=== PATIENT | male | born 1945 | race Two or more races ===

== ENCOUNTER 2017-03-20 09:11 | Outpatient (CLI) | payer MEDICARE, BC ==
[~2017-03-20 09:11] MED LIST: ASPIRIN EC81 MG ORAL; DEXILANT60 MG ORAL; EFFIENT10 MG PO; MYRBETRIQ25 MG PO; NITROSTAT0.4 M1 SL; PROSCAR5 MG ORAL; TAMSULOSIN HCL0.4 MG ORAL; TRIAMTERENE-HC1 EAC7 ORAL; VITAMIN B122500 MCG PO
--- NOTE | 2017-03-20 17:42 | GI Progress Note ---
Assessment/Plan Problems: (1) Colonoscopy planned SNOMED: 807790897 (2) GERD (gastroesophageal reflux disease) ICD Codes: K21.9 - Gastro-esophageal reflux disease without esophagitis SNOMED: 811340783 Status: stable Status Narrative Seen with Dr. Chacko. Assessment/Plan EGD/colonoscopy scheduled 03/28/17. - CLD + [employer] instructions given and acknowledged. Subjective Gastrointestinal/Abdominal: Reports: no symptoms Objective T 97.9 BP 126/83 P 60 98 RA General Appearance: no apparent distress, alert Cardiovascular: normal rate Respiratory/Chest: normal breath sounds, no respiratory distress Abdominal Exam: normal bowel sounds, non tender, soft Extremities: normal range of motion Raquel Norton N.P. Mar 20, 2017 17:42
== END 2017-03-20 09:45 | disposition home or self-care (01) ==
LOC: PAN 09:11
DX: K21.9 Gastro-esophageal reflux disease without esophagitis (principal)
CPT/HCPCS: 99211

== ENCOUNTER 2017-03-28 07:06 | Day surgery (SDC) | payer MEDICARE, BC ==
[~2017-03-28] VITALS: Ht 157.5 cm; Wt 83.0 kg
[2017-03-28] VITALS (9 sets, daily range): BP systolic 105–136; BP diastolic 71–90
[2017-03-28] MEDS ORDERED: ATORVASTATIN CA20 MG ORAL (07:53)
--- NOTE | 2017-03-28 08:25 | Pre-Procedure Note/Attestation ---
Pre-Procedure Note/Attestation Complete Prior to Procedure Planned Procedure: not applicable Procedure Narrative: egd/colonoscopy Indications for Procedure Pre-Operative Diagnosis: screening colon, gerd Attestation I attest that I discussed the nature of the procedure; its benefits; risks and complications; and alternatives (and the risks and benefits of such alternatives ), prior to the procedure, with the patient (or the patient's legal product representative). I attest that, if there was a reasonable possibility of needing a blood transfusion, the patient (or the patient's legal product representative) was given the [facility] standardized written summary, pursuant to the Luke Roder[place] Blood Safety Act ([place] Health and Safety Code # 1645, as amended). I attest that I re-evaluated the patient just prior to the surgery and that there has been no change in the patient's H&P, except as documented below: MARIA TERESA KING Mar 28, 2017 08:25
[2017-03-28] MEDS ORDERED: LR 1000ml ONE (09:00)
[2017-03-28] MEDS ORDERED: Lidocaine 1% Plain 30 ml INJ ONE (09:00)
[2017-03-28] MEDS ORDERED: Ketamine 500mg Inj ONE (09:00)
[2017-03-28] MEDS ORDERED: Midazolam 2mg/2ml Inj ONE (09:00)
[2017-03-28] MEDS ORDERED: Lidocaine 1% MPF 10mg/ml 5ml ONE (09:00)
[2017-03-28] MEDS ORDERED: Propofol 10mg/ml 20ml IV ONE (09:00)
[2017-03-28] MEDS ORDERED: LR 1000ml 1,000 ML IVLG SCH (09:25)
--- NOTE | 2017-03-28 09:29 | Anethesia Preoperative Eval ---
Anesthesia Pre-op PMH/ROS General Date of Evaluation: Mar 28, 2017 Time of Evaluation: 08:56 Anesthesiologist: Danelle ASA Score: ASA 3 Mallampati Score Class I : Soft palate, uvula, fauces, pillars visible Class II: Soft palate, uvula, fauces visible Class III: Soft palate, base of uvula visible Class IV: Only hard plate visible Mallampati Classification: Class II Surgeon: Ginna Diagnosis: GERD Surgical Procedure: EGD/Colonoscopy Anesthesia History: none Family History: no anesthesia problems Allergies: Coded Allergies: No Known Allergies (Verified Allergy, Unknown, 05/10/09) Medications: see eMAR Past Medical History Cardiovascular: Reports: CAD - Stent, HTN, other Gastrointestinal/Genitourinary: Reports: GERD HEENT: Reports: cataract (L), cataract (R) Other: obesity - BMI 33 PSxH Narrative: Stent Anesthesia Pre-op Phys. Exam Physician Exam Last Vital Signs Date Time Temp Pulse Resp B/P Pulse Ox O2 Delivery O2 Flow Rate FiO2 03/28/17 07:38 97.0 57 18 133/88 96 Room Air Constitutional: NAD Neurologic: CN 2-12 intact Cardiovascular: RRR Respiratory: CTA Gastrointestinal: S/NT/ND Airway Exam Mallampati Score: Class II MO: full ROM: full Teeth: intact Anesthesia Pre-op A/P Risk Assessment & Plan Assessment: ASA 3 Plan: GA Status Change Before Surgery: Chris Bryant MD Mar 28, 2017 09:29
[2017-03-28] MEDS ORDERED: Ketorolac 60mg Inj IV PRN (09:30)
[2017-03-28] MEDS ORDERED: Midazolam 2mg/2ml Inj IVP PRN (09:30)
[2017-03-28] MEDS ORDERED: Atropine Inj 1mg/10ml Syr IV PRN (09:30)
[2017-03-28] MEDS ORDERED: Metoclopramide 10mg/2ml Inj IVP PRN (09:30)
[2017-03-28] MEDS ORDERED: Meperidine 25mg/0.5ml Inj (FOR RIGORS ONLY) IV PRN (09:30)
[2017-03-28] MEDS ORDERED: Hydromorphone 0.5mg/0.5ml inj IVP PRN (09:30)
[2017-03-28] MEDS ORDERED: Norco 5mg/325mg tab ORAL PRN (09:30)
[2017-03-28] MEDS ORDERED: fentaNYL 100 mcg/2 mL IV PRN (09:30)
[2017-03-28] MEDS ORDERED: Norco 7.5mg/325mg tab ORAL PRN (09:30)
[2017-03-28] MEDS ORDERED: LORazepam Inj 2mg/ml 1ml IV PRN (09:30)
[2017-03-28] MEDS ORDERED: DiphenhydrAMINE 50mg/ml Inj IVP PRN (09:30)
[2017-03-28] MEDS ORDERED: Oxycodone/Acetaminophen 5-325 ORAL PRN (09:30)
[2017-03-28] MEDS ORDERED: Ketorolac 30mg Inj IV PRN (09:30)
--- NOTE | 2017-03-28 09:30 | Immediate Post-Op Evaluation ---
Immediate Post-Op Evalulation Immediate Post-Op Evalulation Procedure: EGD/Colonoscopy Date of Evaluation: Mar 28, 2017 Time of Evaluation: 09:54 IV Fluids: 500 LR Blood Products: 0 Estimated Blood Loss: 2 Urinary Output: 0 Blood Pressure Systolic: 111 Blood Pressure Diastolic: 76 Pulse Rate: 54 Respiratory Rate: 16 O2 Sat by Pulse Oximetry: 100 Temperature (Fahrenheit): 97.6 Pain Score (1-10): 1 Nausea: No Vomiting: No Complications 0 Patient Status: awake, reacts, patent, none Hydration Status: adequate Chris Mcclendon MD Mar 28, 2017 09:30
--- NOTE | 2017-03-28 09:30 | 48 Hour Post Anesthesia Eval ---
Post Anesthesia Evaluation Procedure: EGD/Colonoscopy Date of Evaluation: Mar 28, 2017 Time of Evaluation: 12:06 Blood Pressure Systolic: 147 0: 74 Pulse Rate: 51 Respiratory Rate: 18 Temperature (Fahrenheit): 98.2 O2 Sat by Pulse Oximetry: 98 Airway: patent Nausea: No Vomiting: No Pain Intensity: 1 Hydration Status: adequate Cardiopulmonary Status: Stable Mental Status/LOC: patient returned to baseline Follow-up Care/Observations: 0 Post-Anesthesia Complications: 0 Follow-up care needed: ready to discharge Chris Mcclendon MD Mar 28, 2017 09:30
--- NOTE | 2017-03-28 09:32 | Endoscopy Procedure Note ---
Endoscopy Procedure Note Indication for Procedure: screening colon, GERD Procedures Performed: EGD, colonoscopy Operative Findings/Diagnosis: gastric sub mucodal lesion, gastritis Specimen: yes Pt Tolerated Procedure Well: Yes Estimated Blood Loss: none Anesthesiologist: sarika Anesthesia: MAC Implant(s) used?: No 50 yrs or older w/o bx or poly: Yes 10yrs. F/U not recommended: Yes If not recommended, why?: Above average risk 10 yrs. F/U needed: Yes 18 years or older w/prev. colo: No MARIA TERESA KING Mar 28, 2017 09:31
--- NOTE | 2017-03-28 11:31 | Procedure Note ---
DATE OF PROCEDURE: 03/28/2017 SURGEON: Larry Chacko M.D. PROCEDURE: Colonoscopy with biopsy and colonoscopy. ANESTHESIOLOGIST: Domenic Mcclendon M.D. INSTRUMENT: Olympus adult flexible upper endoscope and colonoscope. INDICATION: Screening colonoscopy evaluation, chronic GERD. REASON FOR PROCEDURE: The procedure, risks, benefits, and possible consequences, including hemorrhage, aspiration, perforation and infection, and alternative treatments, were explained to the patient/legal guardian by Dr. Larry Chacko and the patient/legal guardian understood and accepted these risks. PROCEDURE: After informed consent was obtained and the patient was adequately sedated, Olympus upper endoscope was advanced from mouth into the second portion of the duodenum and retroflexion performed in the stomach. The patient had a gastric submucosal lesion in the antrum in the pre-pyloric region. Posterior wall with a central cavity looking lesion roughly measured about 7 mm suspicious for pancreatic rest, status post biopsy. The patient had diffuse gastritis. Random biopsy from antrum of the stomach was obtained to rule out H. pylori infection. At this time, the upper endoscope was retrieved and the patient was turned over colonoscopy. First, a rectal exam was performed, which was normal. Then, the scope was advanced from the rectum into the cecum documented by appendiceal orifice, ileocecal valve, and right upper quadrant palpation. Quality of prep overall was good except for some solid stool covering some part of the colon especially cecum and also throughout the colon may be about 5% of the colonic mucosa was not thoroughly examined given this prep. There was no obvious mass, polyp, diverticulosis or any pathology seen. Retroflexion of rectum showed evidence of internal hemorrhoids. FINDINGS: 1. Gastric submucosal lesion suspicious for pancreatic rest, status post biopsy. 2. Gastritis, status post biopsy. 3. Colonic prep. 4. Internal hemorrhoids. RECOMMENDATIONS: Follow up biopsies and treat accordingly. Larry Chacko M.D. DR: Aggie JOB#: [id number] CC:
--- NOTE | 2017-03-28 16:40 | Cardiology Report ---
APPROVED REPORT EKG Measurement Heart [id number] OR 172P47 [id number] Sinus rhythm with occasional premature ventricular complexes Possible Lateral infarct, age undetermined Abnormal ECG
== END 2017-03-28 11:25 | disposition home or self-care (01) ==
LOC: GAS 07:06
DX: Z12.11 Encounter for screening for malignant neoplasm of colon (principal); K64.8 Other hemorrhoids; K21.9 Gastro-esophageal reflux disease without esophagitis; K29.50 Unspecified chronic gastritis without bleeding; K31.9 Disease of stomach and duodenum, unspecified; I10 Essential (primary) hypertension; I25.10 Atherosclerotic heart disease of native coronary artery without angina pectoris; E78.5 Hyperlipidemia, unspecified; E66.9 Obesity, unspecified; Z68.33 Body mass index [BMI] 33.0-33.9, adult
CPT/HCPCS: 43239; 93005; G0121; J2001; J2250; J2704; J3490; J7120; 94003; 94150

== ENCOUNTER 2017-04-10 09:34 | Outpatient (CLI) | payer MEDICARE, BC ==
[~2017-04-10 09:34] MED LIST changes: +ATORVASTATIN CA20 MG ORAL
[2017-04-10 09:48] VITALS: BP 118/76
--- NOTE | 2017-04-10 10:09 | GI Progress Note ---
Assessment/Plan Problems: (1) Submucosal lesion of stomach ICD Codes: K31.89 - Other diseases of stomach and duodenum SNOMED: 175288717 (2) Colonoscopy planned SNOMED: 987317190 (3) GERD (gastroesophageal reflux disease) ICD Codes: K21.9 - Gastro-esophageal reflux disease without esophagitis SNOMED: 538376725 (4) CAD (coronary artery disease) ICD Codes: I25.10 - Atherosclerotic heart disease of [place] coronary artery without angina pectoris SNOMED: 99487776 (5) Status post coronary angiogram ICD Codes: Z98.89 - Other specified postprocedural states SNOMED: 98198336, 419355737 Status: stable Status Narrative Seen with Dr. Chacko. Assessment/Plan EGD/ Colonoscopy reviewed with patient. DATE OF PROCEDURE: 03/28/2017 PROCEDURE: Colonoscopy with biopsy and colonoscopy. INDICATION: Screening colonoscopy evaluation, chronic GERD. FINDINGS: 1. Gastric submucosal lesion suspicious for pancreatic rest, status post biopsy. 2. Gastritis, status post biopsy. >> NEGATIVE for H. Pylori 3. Colonic prep. 4. Internal hemorrhoids. RECOMMENDATIONS: EUS scheduled for 04/18/17 to evaluate gastric submucosal lesion. - NPO @ [place] day prior to procedure explained to patient. Subjective Subjective GERD >> dexilant 60 mg Objective Last 24 Hour Vital Signs Date Time Temp Pulse Resp B/P Pulse Ox O2 Delivery O2 Flow Rate FiO2 04/10/17 09:48 97.6 61 16 118/76 General Appearance: no apparent distress, alert Cardiovascular: normal rate Respiratory/Chest: normal breath sounds, no respiratory distress Abdominal Exam: normal bowel sounds, non tender, soft Extremities: normal range of motion Raquel Norton N.P. Apr 10, 2017 10:09
== END 2017-04-10 10:00 | disposition home or self-care (01) ==
LOC: PAN 09:34
DX: K21.9 Gastro-esophageal reflux disease without esophagitis (principal); K31.89 Other diseases of stomach and duodenum; I25.10 Atherosclerotic heart disease of native coronary artery without angina pectoris; Z98.890 Other specified postprocedural states
CPT/HCPCS: 99211

== ENCOUNTER 2017-05-16 07:43 | Day surgery (SDC) | payer MEDICARE, BC ==
[2017-05-16] VITALS (7 sets, daily range): BP systolic 98–147; BP diastolic 62–87
[~2017-05-16] VITALS: Ht 154.9 cm; Wt 85.3 kg
--- NOTE | 2017-05-16 05:59 | Anethesia Preoperative Eval ---
Anesthesia Pre-op PMH/ROS General Date of Evaluation: May 16, 2017 Time of Evaluation: 05:56 Anesthesiologist: mele ASA Score: ASA 3 Mallampati Score Class I : Soft palate, uvula, fauces, pillars visible Class II: Soft palate, uvula, fauces visible Class III: Soft palate, base of uvula visible Class IV: Only hard plate visible Mallampati Classification: Class II Surgeon: judd Diagnosis: abdominal pain Surgical Procedure: eus Anesthesia History: none Social History: smoking - nonsmoker Family History: no anesthesia problems Allergies: Coded Allergies: No Known Allergies (Verified Allergy, Unknown, 05/10/09) Medications: see eMAR Past Medical History Cardiovascular: Reports: HTN, CAD, other - cardiac stent, cardiac catheterization, Gastrointestinal/Genitourinary: Reports: other - gastritis Hematology/Immune: Reports: other - anticoagulation therapy Musculoskeletal/Integumentary: Reports: OA Anesthesia Pre-op Phys. Exam Physician Exam Last Vital Signs Date Time Temp Pulse Resp B/P (MAP) Pulse Ox O2 Delivery O2 Flow Rate FiO2 05/16/17 08:38 98.1 53 20 143/80 98 Room Air Constitutional: NAD Neurologic: CN 2-12 intact Cardiovascular: RRR Respiratory: CTA Gastrointestinal: S/NT/ND Airway Exam Mallampati Score: Class II MO: full Neck: supple TMD: 2fb ROM: full Teeth: intact Anesthesia Pre-op A/P Studies Pre-op Studies: EKG - sinus bradycardia Risk Assessment & Plan Assessment: asa3 Plan: mac Status Change Before Surgery: No Pre-Antibiotics Drug: SELWYN Duff May 16, 2017 05:59
--- NOTE | 2017-05-16 08:49 | Short Stay Surgery H&P ---
History of Present Illness History of Present Illness Chief Complaint gastric sub mucosal lesion HPI Rina Gamboa is a 71 year old male who was admitted on for Abdominal Pain Patient History Allergies: Coded Allergies: No Known Allergies (Verified Allergy, Unknown, 05/10/09) PAST MEDICAL HISTORY: (1) CAD (coronary artery disease) (2) Submucosal lesion of stomach (3) GERD (gastroesophageal reflux disease) (4) Status post coronary angiogram Past Surgeries: Social History: Medication History Scheduled Aspirin Ec* (Aspirin Ec*), 81 MG ORAL DAILY, (Reported) Atorvastatin Calcium* (Atorvastatin Calcium*), 20 MG ORAL BEDTIME, (Reported) Dexlansoprazole (Dexilant), 60 MG ORAL DAILY, (Reported) Mirabegron (Myrbetriq), 25 MG PO DAILY, (Reported) Prasugrel Hcl (Effient), 10 MG PO DAILY, (Reported) Tamsulosin Hcl (Tamsulosin Hcl*), 0.4 MG ORAL BEDTIME, (Reported) Triamterene/Hydrochlorothiazid (Triamterene-Hctz 37.5-25 Mg Cp), 1 CAP ORAL DAILY, (Reported) Review of Systems Cardiovascular: Reports: no symptoms Respiratory: Reports: no symptoms Skeletal: Reports: no symptoms Gastrointestinal: Reports: no symptoms Genitourinary: Reports: no symptoms Neurologic: Reports: no symptoms Endocrine: Reports: no symptoms Physical Exam Vital Signs Last Vital Signs Date Time Temp Pulse Resp B/P (MAP) Pulse Ox O2 Delivery O2 Flow Rate FiO2 05/16/17 08:38 98.1 53 20 143/80 98 Room Air Skin: normal HENT: normal Heart: normal Lungs: normal Abdomen: normal Extremities: normal Plan Attestation Are the patient's medical conditions optimized for surgery? Attestation Response: yes MARIA TERESA KING May 16, 2017 08:49
--- NOTE | 2017-05-16 08:49 | Pre-Procedure Note/Attestation ---
Pre-Procedure Note/Attestation Complete Prior to Procedure Planned Procedure: not applicable Procedure Narrative: eus Indications for Procedure Pre-Operative Diagnosis: gastric submucosal lesion Attestation I attest that I discussed the nature of the procedure; its benefits; risks and complications; and alternatives (and the risks and benefits of such alternatives ), prior to the procedure, with the patient (or the patient's legal medical collections representative). I attest that, if there was a reasonable possibility of needing a blood transfusion, the patient (or the patient's legal medical collections representative) was given the [facility] standardized written summary, pursuant to the [place]oder[place] Blood Safety Act ([place] Health and Safety Code # 1645, as amended). I attest that I re-evaluated the patient just prior to the surgery and that there has been no change in the patient's H&P, except as documented below: MARIA TERESA KING May 16, 2017 08:48
[2017-05-16] MEDS ORDERED: Propofol 10mg/ml 20ml IV ONE (09:30)
[2017-05-16] MEDS ORDERED: Lidocaine 1% MPF 10mg/ml 5ml ONE (09:30)
[2017-05-16] MEDS ORDERED: NS Irrig 1000ml ONE (09:30)
[2017-05-16] MEDS ORDERED: Hydromorphone 0.5mg/0.5ml inj IVP PRN (10:00)
[2017-05-16] MEDS ORDERED: Midazolam 2mg/2ml Inj IVP PRN (10:00)
[2017-05-16] MEDS ORDERED: Atropine Inj 1mg/10ml Syr IV PRN (10:00)
[2017-05-16] MEDS ORDERED: DiphenhydrAMINE 50mg/ml Inj IVP PRN (10:00)
--- NOTE | 2017-05-16 10:05 | Endoscopy Procedure Note ---
Endoscopy Procedure Note Indication for Procedure: gastric sub mucosal lesion Procedures Performed: EGD, other - EUS Operative Findings/Diagnosis: same Specimen: yes Pt Tolerated Procedure Well: Yes Estimated Blood Loss: none Anesthesiologist: aristeo Anesthesia: MAC Implant(s) used?: No 50 yrs or older w/o bx or poly: Not Applicable 10yrs. F/U not recommended: Not Applicable MARIA TERESA KING May 16, 2017 10:05
--- NOTE | 2017-05-16 12:01 | Immediate Post-Op Evaluation ---
Immediate Post-Op Evalulation Immediate Post-Op Evalulation Procedure: eus Date of Evaluation: May 16, 2017 Time of Evaluation: 10:27 IV Fluids: 650ml 0.9ns Blood Products: none Estimated Blood Loss: negligible Blood Pressure Systolic: 111 Blood Pressure Diastolic: 71 Pulse Rate: 54 Respiratory Rate: 17 O2 Sat by Pulse Oximetry: 99 Temperature (Fahrenheit): 97.3 Pain Score (1-10): 0 Nausea: No Vomiting: No Complications none Patient Status: awake, reacts, patent Hydration Status: adequate Drug: SELWYN Duff May 16, 2017 12:01
--- NOTE | 2017-05-16 12:10 | 48 Hour Post Anesthesia Eval ---
Post Anesthesia Evaluation Procedure: eus Date of Evaluation: May 16, 2017 Time of Evaluation: 12:01 Blood Pressure Systolic: 147 0: 87 Pulse Rate: 50 Respiratory Rate: 17 Temperature (Fahrenheit): 97.0 O2 Sat by Pulse Oximetry: 99 Airway: patent Nausea: No Vomiting: No Pain Intensity: 0 Hydration Status: adequate Cardiopulmonary Status: stable Mental Status/LOC: patient returned to baseline Post-Anesthesia Complications: none Follow-up care needed: N/A SELWYN ALBARADO May 16, 2017 12:10
--- NOTE | 2017-05-16 22:01 | Procedure Note ---
DATE OF PROCEDURE: 05/16/2017 SURGEON: Larry Chacko M.D. PROCEDURE: Upper endoscopy with biopsy and endoscopic ultrasound. ANESTHESIOLOGIST: Marilyn Mansfield M.D. INSTRUMENT: Olympus adult flexible upper endoscope and EUS scope. INDICATION: Gastric submucosal lesion. REASON FOR PROCEDURE: The procedure, risks, benefits, and possible consequences, including hemorrhage, aspiration, perforation and infection, and alternative treatments, were explained to the patient/legal guardian by Dr. Larry Chacko and the patient/legal guardian understood and accepted these risks. PROCEDURE: After informed consent was obtained and the patient was adequately sedated, EUS scope was advanced from mouth into the stomach. There was a gastric submucosal lesion seen in the antrum of the stomach and the posterior wall with central cavitation roughly measured about 1 cm. This lesion is mostly hyperechoic and at the submucosal area. This was very difficult to scan. We spent almost half an hour trying back and froth going to the antrum and going back to the body. Scanning this lesion, we could not get a very good view of it the way we wanted it, but in one or two views we saw as I mentioned about 1 cm hyperechoic lesion in the submucosal area. At this time, the EUS scope was removed and EGD scope therapeutic scope was introduced with jumbo biopsy and multiple biopsies from this lesion was obtained. SUMMARY OF FINDINGS: About 1 cm gastric submucosal lesion. Difficult to see with EUS, mostly submucosal hypoechoic, status post multiple jumbo biopsies. RECOMMENDATIONS: Follow up biopsy results and treat accordingly. Larry Chacko M.D. DR: GERMAIN JOB#: [id number] CC:
--- NOTE | 2017-05-17 13:43 | Cardiology Report ---
APPROVED REPORT EKG Measurement Heart [id number] WY 196P29 [id number] Sinus bradycardia Otherwise normal ECG
== END 2017-05-16 12:00 | disposition home or self-care (01) ==
LOC: GAS 07:43
DX: K31.9 Disease of stomach and duodenum, unspecified (principal); R10.9 Unspecified abdominal pain; K21.9 Gastro-esophageal reflux disease without esophagitis; I25.10 Atherosclerotic heart disease of native coronary artery without angina pectoris; Z95.5 Presence of coronary angioplasty implant and graft; I10 Essential (primary) hypertension; M19.90 Unspecified osteoarthritis, unspecified site; R00.1 Bradycardia, unspecified; Z87.19 Personal history of other diseases of the digestive system; Z79.01 Long term (current) use of anticoagulants; Z79.82 Long term (current) use of aspirin
CPT/HCPCS: 43237; 43239; 93005; J2704; 94003; 94150

== ENCOUNTER 2018-04-02 11:13 | Outpatient (CLI) | payer MEDICARE, BC ==
--- NOTE | 2018-04-03 08:43 | GI Progress Note ---
Assessment/Plan Problems: (1) Encounter for diagnostic endoscopy ICD Codes: Z01.818 - Encounter for other preprocedural examination SNOMED: 703335842, 232012695 (2) Submucosal lesion of stomach ICD Codes: K31.89 - Other diseases of stomach and duodenum SNOMED: 569792292 (3) GERD (gastroesophageal reflux disease) ICD Codes: K21.9 - Gastro-esophageal reflux disease without esophagitis SNOMED: 950380861 Status: stable Status Narrative Seen with Dr. Chacko. Assessment/Plan EGD/EUS scheduled for 04/10/18. - NPO @ [place] day prior procedure. cont dexilant plan for CT same day labs to be drawn >> CBC, CMP, CEA Subjective Subjective had recent colonoscopy in March. no general symptoms Objective T 97.8 BP 117/80 P 75 98 RA General Appearance: WD/WN, no apparent distress, alert Cardiovascular: normal rate Respiratory/Chest: normal breath sounds, no respiratory distress Abdominal Exam: normal bowel sounds, non tender, soft Extremities: normal range of motion, non-tender Sofy Norton SENIOR ANALYST PROGRAMMER Apr 03, 2018 08:43
[2018-04-04 14:24] VITALS: BP 117/80
--- NOTE | 2018-04-05 08:51 | GI Initial Consult Note ---
History of Present Illness General Date patient seen: Apr 02, 2018 Time patient seen: 10:00 Reason for Consultation: EUS Present Illness HPI 72 year old male known to us from previous visits. In 2017, the patient had an routine EGD/colonoscopy and a gastric submucosal lesion suspicious for pancreatic mass was found. The patient followed up with an EUS a few months later noted to have about 1 cm gastric submucosal lesion. Bx of this lesion showed antral mucosa with foveolar hyperplasia and reactive changes. He presents today for repeat EUS to evaluate this lesion. No other general GI complaints noted from the patient. Denies any unintentional weight loss or changes in dietary habits. No signs of abuse or neglect. Patient is not fall risk. Home Meds Reported Medications Atorvastatin Calcium* (ATORVASTATIN CALCIUM*) 20 Mg Tablet, 20 MG ORAL BEDTIME, TAB 03/28/17 Dexlansoprazole (Dexilant) 60 Mg Cap., 60 MG ORAL DAILY, CAP 07/20/16 Mirabegron (MYRBETRIQ) 25 Mg Tab.er.24h, 25 MG PO DAILY, TAB 07/20/16 Prasugrel Hcl (EFFIENT) 10 Mg Tablet, 10 MG PO DAILY, TAB 07/20/16 Tamsulosin Hcl (TAMSULOSIN HCL*) 0.4 Mg Cap.er.24h, 0.4 MG ORAL BEDTIME, CAP 07/20/16 Triamterene/Hydrochlorothiazid (TRIAMTERENE-HCTZ 37.5-25 MG CP) 1 Each Capsule, 1 CAP ORAL DAILY, CAP 07/20/16 Aspirin Ec* (ASPIRIN EC*) 81 Mg Tablet., 81 MG ORAL DAILY, TAB 07/20/16 Med list reviewed/reconciled: Yes Allergies: Coded Allergies: No Known Allergies (Verified Allergy, Unknown, 05/10/09) Patient History History Provided By: Patient, Medical Record PMH Narrative CAD GERD Past Surgical History: Eye surgery angiogram x 3 DATE OF PROCEDURE: 03/28/2017 PROCEDURE: Colonoscopy with biopsy and colonoscopy. INDICATION: Screening colonoscopy evaluation, chronic GERD. FINDINGS: 1. Gastric submucosal lesion suspicious for pancreatic rest, status post biopsy. 2. Gastritis, status post biopsy. >> NEGATIVE for H. Pylori 3. Colonic prep. 4. Internal hemorrhoids. DATE OF PROCEDURE: 05/16/2017 PROCEDURE: Upper endoscopy with biopsy and endoscopic ultrasound. SUMMARY OF FINDINGS: About 1 cm gastric submucosal lesion. Difficult to see with EUS, mostly submucosal hypoechoic, status post multiple jumbo biopsies. Family History Narrative Brother - chronic pancreatitis, taking pancrease 67 y/o Social History: Denies: alcohol use, drug use, other, smoking Review of Systems All Other Systems: negative except mentioned in HPI Physical Exam Vital Signs Date Time Temp Pulse Resp B/P (MAP) Pulse Ox O2 Delivery O2 Flow Rate FiO2 04/04/18 14:24 97.8 75 117/80 95 97.8 Sp02 EP Interpretation: reviewed, normal General Appearance: well appearing, no apparent distress, alert Head: normocephalic EENT: PERRL/EOMI, normal ENT inspection Neck: supple Respiratory: normal breath sounds, no respiratory distress Cardiovascular: normal rate Gastrointestinal: normal inspection, non tender, soft, normal bowel sounds, non -distended Rectal: deferred Genitourinary: deferred Musculoskeletal: normal inspection, back normal Neurologic: normal inspection, alert, oriented x3, responsive Psychiatric: normal inspection, judgement/insight normal, memory normal Skin: normal inspection, normal color, no rash, warm/dry, palpation normal, well hydrated Lymphatic: normal inspection, no adenopathy GI: Plan Problems: (1) Submucosal lesion of stomach (2) Encounter for diagnostic endoscopy (3) GERD (gastroesophageal reflux disease) (4) CAD (coronary artery disease) Plan EGD/EUS scheduled for 04-08-18. - NPO @ [place] day prior procedure. - pt instructed to stop Effient. Seen with Dr. Chacko. Thank you for this patient referral. The patient was seen and examined at bedside and all new and available data was reviewed in the patients chart. I agree with the above findings, impression and plan. (Patient seen earlier today. Signature stamp does not reflect patient encounter time.). - MD Cierra Baez,[facility] Medical CenterEyal HAZMAT TECHNICIAN Apr 05, 2018 08:51
== END 2018-04-02 13:13 | disposition home or self-care (01) ==
LOC: PAN 11:13
DX: Z01.818 Encounter for other preprocedural examination (principal); K31.89 Other diseases of stomach and duodenum; K21.9 Gastro-esophageal reflux disease without esophagitis
CPT/HCPCS: 99212

== ENCOUNTER 2018-04-08 07:57 | Day surgery (SDC) | payer MEDICARE, BC ==
[2018-04-08] VITALS (9 sets, daily range): BP systolic 111–141; BP diastolic 60–83
[~2018-04-08] VITALS: Ht 165.1 cm; Wt 74.8 kg
[~2018-04-08 07:57] MED LIST changes: +Isovue-300 100ml vial INJ PRN
--- NOTE | 2018-04-08 08:12 | Pre-Procedure Note/Attestation ---
Pre-Procedure Note/Attestation Complete Prior to Procedure Planned Procedure: not applicable Procedure Narrative: egd/eus Indications for Procedure Pre-Operative Diagnosis: abd pain and wt loss Attestation I attest that I discussed the nature of the procedure; its benefits; risks and complications; and alternatives (and the risks and benefits of such alternatives ), prior to the procedure, with the patient (or the patient's legal scheduling representative). I attest that, if there was a reasonable possibility of needing a blood transfusion, the patient (or the patient's legal scheduling representative) was given the [facility] standardized written summary, pursuant to the [place] Blood Safety Act ([place] Health and Safety Code # 1645, as amended). I attest that I re-evaluated the patient just prior to the surgery and that there has been no change in the patient's H&P, except as documented below: Larry Chacko MD Apr 08, 2018 08:12
--- NOTE | 2018-04-08 08:13 | Short Stay Surgery H&P ---
History of Present Illness History of Present Illness Chief Complaint abd pain and wt loss HPI Rina Gamboa is a 72 year old male who was admitted on for Submucosal Lesion - Weight Loss Patient History Allergies: Coded Allergies: No Known Allergies (Verified Allergy, Unknown, 05/10/09) PAST MEDICAL HISTORY: (1) GERD (gastroesophageal reflux disease) (2) Submucosal lesion of stomach (3) Encounter for diagnostic endoscopy (4) CAD (coronary artery disease) (5) Status post coronary angiogram Medication History Scheduled Aspirin Ec* (Aspirin Ec*), 81 MG ORAL DAILY, (Reported) Atorvastatin Calcium* (Atorvastatin Calcium*), 20 MG ORAL BEDTIME, (Reported) Dexlansoprazole (Dexilant), 60 MG ORAL DAILY, (Reported) Mirabegron (Myrbetriq), 25 MG PO DAILY, (Reported) Prasugrel Hcl (Effient), 10 MG PO DAILY, (Reported) Tamsulosin Hcl (Tamsulosin Hcl*), 0.4 MG ORAL BEDTIME, (Reported) Triamterene/Hydrochlorothiazid (Triamterene-Hctz 37.5-25 Mg Cp), 1 CAP ORAL DAILY, (Reported) Review of Systems Cardiovascular: Reports: no symptoms Skeletal: Reports: no symptoms Gastrointestinal: Reports: gastro esophageal reflux disease Genitourinary: Reports: no symptoms Neurologic: Reports: no symptoms Endocrine: Reports: no symptoms Hematologic: Reports: no symptoms Physical Exam Skin: normal HENT: normal Heart: normal Lungs: normal Abdomen: normal Extremities: normal Plan Plan of Care esophagogastroduodenoscopy/eus Attestation Are the patient's medical conditions optimized for surgery? Attestation Response: yes Larry Chacko MD Apr 08, 2018 08:13
[2018-04-08] MEDS ORDERED: VITAMIN D250000 UNI1 ORAL (09:14)
[2018-04-08] MEDS ORDERED: OXYBUTYNIN CHLO10 MG PO (09:14)
[2018-04-08] MEDS ORDERED: CLOPIDOGREL75 MG ORAL (09:14)
[2018-04-08] MEDS ORDERED: PROSCAR5 MG ORAL (09:14)
[2018-04-08] MEDS ORDERED: OMEPRAZOLE40 M1 ORAL (09:14)
[2018-04-08 09:17] LABS: BASOPHILS % (AUTO) 0.7 % (0.0-2.0); EOSINOPHILS % (AUTO) 1.2 % (0.0-3.0); HEMATOCRIT 44.7 % (42.0-52.0); HEMOGLOBIN 15.8 G/DL (14.2-18.0); MEAN CORPUSCULAR VOLUME 87 FL (80-99); MONOCYTES % (AUTO) 7.2 % (1.0-10.0); NEUTROPHILS % (AUTO) 64.9 % (45.0-75.0); PLATELET COUNT 151 K/UL (150-450); RED BLOOD COUNT 5.15 M/UL (4.70-6.10); RED CELL DISTRIBUTION WIDTH 11.1 % (11.6-14.8); WHITE BLOOD COUNT 5.6 K/UL (4.8-10.8)
[2018-04-08 09:49] LABS: ANION GAP 12 mmol/L (5-15); BLOOD UREA NITROGEN 14 mg/dL (7-18); CALCIUM 9.5 MG/DL (8.5-10.1); CARBON DIOXIDE 25 MMOL/L (21-32); CHLORIDE 107 MMOL/L (98-107); CREATININE 1.2 MG/DL (0.55-1.30); SODIUM 143 MMOL/L (136-145)
[2018-04-08 09:54] LABS: ALANINE AMINOTRANSFERASE 33 U/L (12-78); ALBUMIN 3.4 G/DL (3.4-5.0); ALKALINE PHOSPHATASE 64 U/L (46-116); ASPARTATE AMINO TRANSFERASE 25 U/L (15-37); BILIRUBIN,TOTAL 0.9 MG/DL (0.2-1.0)
[2018-04-08] MEDS ORDERED: Midazolam 2mg/2ml Inj ONE (10:00)
[2018-04-08] MEDS ORDERED: Propofol 200mg/20ml IV ONE (10:00)
[2018-04-08] MEDS ORDERED: Lidocaine 1% MPF 10mg/ml 5ml ONE (10:00)
[2018-04-08] MEDS ORDERED: LR 1000ml ONE (10:00)
--- NOTE | 2018-04-08 10:12 | Endoscopy Procedure Note ---
Endoscopy Procedure Note General Indication for Procedure: abd pain, wt loss Procedures Performed: EGD, other - EUS Operative Findings/Diagnosis: gastritis, gastric polyp Specimen: yes Pt Tolerated Procedure Well: Yes Estimated Blood Loss: none Anesthesia Anesthesiologist: sarika Anesthesia: MAC Inserted Devices Implant(s) used?: No GI Core Measures 50 yrs or older w/o bx or poly: Not Applicable 10yrs. F/U not recommended: Not Applicable Larry Chacko MD Apr 08, 2018 10:12
[2018-04-08] MEDS ORDERED: LR 1000ml 1,000 ML IVLG SCH (10:16)
--- NOTE | 2018-04-08 10:20 | Anethesia Preoperative Eval ---
Anesthesia Pre-op PMH/ROS General Date of Evaluation: Apr 08, 2018 Time of Evaluation: 09:59 Anesthesiologist: Danelle ASA Score: ASA 3 Mallampati Score Class I : Soft palate, uvula, fauces, pillars visible Class II: Soft palate, uvula, fauces visible Class III: Soft palate, base of uvula visible Class IV: Only hard plate visible Mallampati Classification: Class II Surgeon: Ginna Diagnosis: Weight Loss Surgical Procedure: EGD/EUS Anesthesia History: none Family History: no anesthesia problems Allergies: Coded Allergies: No Known Allergies (Verified , 04/08/18) Medications: see eMAR Past Medical History Cardiovascular: Reports: HTN, CAD - Coronary Stent X2, other - HL Pulmonary: Reports: ZACK Gastrointestinal/Genitourinary: Reports: GERD Anesthesia Pre-op Phys. Exam Physician Exam Last Vital Signs Date Time Temp Pulse Resp B/P (MAP) Pulse Ox O2 Delivery O2 Flow Rate FiO2 04/08/18 09:00 50 18 124/66 (85) 100 04/08/18 08:47 Room Air 04/08/18 08:28 98.2 98.2 Constitutional: NAD Neurologic: CN 2-12 intact Cardiovascular: RRR Respiratory: CTA Gastrointestinal: S/NT/ND Airway Exam Mallampati Score: Class II MO: limited ROM: limited Teeth: missing, intact Anesthesia Pre-op A/P Labs Hematology Test 04/08/18 09:05 White Blood Count 5.6 K/UL (4.8-10.8) Red Blood Count 5.15 M/UL (4.70-6.10) Hemoglobin 15.8 G/DL (14.2-18.0) Hematocrit 44.7 % (42.0-52.0) Mean Corpuscular Volume 87 FL (80-99) Mean Corpuscular Hemoglobin 30.7 PG (27.0-31.0) Mean Corpuscular Hemoglobin Concent 35.4 G/DL (32.0-36.0) Red Cell Distribution Width 11.1 % (11.6-14.8) L Platelet Count 151 K/UL (150-450) Mean Platelet Volume 10.0 FL (6.5-10.1) Neutrophils (%) (Auto) 64.9 % (45.0-75.0) Lymphocytes (%) (Auto) 26.0 % (20.0-45.0) Monocytes (%) (Auto) 7.2 % (1.0-10.0) Eosinophils (%) (Auto) 1.2 % (0.0-3.0) Basophils (%) (Auto) 0.7 % (0.0-2.0) Chemistry Test 04/08/18 09:05 Sodium Level 143 MMOL/L (136-145) Potassium Level 3.0 MMOL/L (3.5-5.1) L Chloride Level 107 MMOL/L (98-107) Carbon Dioxide Level 25 MMOL/L (21-32) Anion Gap 12 mmol/L (5-15) Blood Urea Nitrogen 14 mg/dL (7-18) Creatinine 1.2 MG/DL (0.55-1.30) Estimat Glomerular Filtration Rate mL/min (>60) Glucose Level 135 MG/DL (74-106) H Calcium Level 9.5 MG/DL (8.5-10.1) Total Bilirubin 0.9 MG/DL (0.2-1.0) Aspartate Amino Transf (AST/SGOT) 25 U/L (15-37) Alanine Aminotransferase (ALT/SGPT) 33 U/L (12-78) Alkaline Phosphatase 64 U/L (46-116) Total Protein 6.9 G/DL (6.4-8.2) Albumin 3.4 G/DL (3.4-5.0) Globulin 3.5 g/dL Albumin/Globulin Ratio 1.0 (1.0-2.7) Carcinoembryonic Antigen Pending Risk Assessment & Plan Assessment: ASA 3 Plan: GA Status Change Before Surgery: Chris Bryant MD Apr 08, 2018 10:20
--- NOTE | 2018-04-08 10:23 | Immediate Post-Op Evaluation ---
Immediate Post-Op Evalulation Immediate Post-Op Evalulation Procedure: EGD/EUA Date of Evaluation: Apr 08, 2018 Time of Evaluation: 10:43 IV Fluids: 1000 LR Blood Products: 0 Estimated Blood Loss: 2 Urinary Output: 0 Blood Pressure Systolic: 111 Blood Pressure Diastolic: 62 Pulse Rate: 55 Respiratory Rate: 17 O2 Sat by Pulse Oximetry: 100 Temperature (Fahrenheit): 98.2 Pain Score (1-10): 1 Nausea: No Vomiting: No Complications 0 Patient Status: awake, reacts, patent, none Hydration Status: adequate Chris Mcclendon MD Apr 08, 2018 10:23
--- NOTE | 2018-04-08 10:27 | 48 Hour Post Anesthesia Eval ---
Post Anesthesia Evaluation Procedure: EGD/EUA Date of Evaluation: Apr 08, 2018 Time of Evaluation: 10:54 Blood Pressure Systolic: 116 0: 64 Pulse Rate: 54 Respiratory Rate: 18 Temperature (Fahrenheit): 98.4 O2 Sat by Pulse Oximetry: 100 Airway: patent Nausea: No Vomiting: No Pain Intensity: 1 Hydration Status: adequate Cardiopulmonary Status: Stable Mental Status/LOC: patient returned to baseline Follow-up Care/Observations: 0 Post-Anesthesia Complications: 0 Follow-up care needed: ready to discharge Chris Mcclendon MD Apr 08, 2018 10:26
[2018-04-08] MEDS ORDERED: Atropine Inj 1mg/10ml Syr IV PRN (10:30)
[2018-04-08] MEDS ORDERED: Midazolam 2mg/2ml Inj IVP PRN (10:30)
[2018-04-08] MEDS ORDERED: Norco 5mg/325mg tab ORAL PRN (10:30)
[2018-04-08] MEDS ORDERED: DiphenhydrAMINE 50mg/ml Inj IVP PRN (10:30)
[2018-04-08] MEDS ORDERED: HYDROcodone/Acetamin 7.5/325 tab ORAL PRN (10:30)
[2018-04-08] MEDS ORDERED: fentaNYL 100 mcg/2 mL IV PRN (10:30)
[2018-04-08] MEDS ORDERED: Labetalol 5mg/ml 20ml vial IV PRN (10:30)
[2018-04-08] MEDS ORDERED: Hydromorphone 0.5mg/0.5ml inj IVP PRN (10:30)
[2018-04-08] MEDS ORDERED: LORazepam Inj 2mg/ml 1ml IV PRN (10:30)
[2018-04-08] MEDS ORDERED: Ketorolac 30mg Inj IV PRN ×2 (10:30)
[2018-04-08] MEDS ORDERED: oxyCODONE HCL/Acetaminophen 5/325mg ORAL PRN (10:30)
[2018-04-08] MEDS ORDERED: Metoclopramide 10mg/2ml Inj IVP PRN (10:30)
--- NOTE | 2018-04-08 16:46 | Diagnostic Imaging Report ---
INDICATION: Abdominal pain, weight loss, coronary disease TECHNIQUE: Patient ingested enteric contrast. Multiphasic spiral acquisitions obtained through the chest, abdomen, and pelvis Multiplanar reconstructions were generated. Total dose length product 1556.68 mGycm. CTDIvol(s) 15.63,14.4 mGy. Radiation dose was minimized using automated exposure control COMPARISON: none FINDINGS Chest: The lungs demonstrate posterior dependent atelectatic changes. No infiltrates, effusions, masses, or nodules are demonstrated. Some slight mosaic groundglass opacity in the posterior upper and lower lobes bilaterally probably just represents atelectatic change but a mild component of pulmonary edema is also possible. The heart is borderline enlarged. No pericardial effusion. No mediastinal or hilar mass or adenopathy. Unremarkable esophagus. No axillary or chest wall mass or adenopathy. Subcentimeter low-attenuation lesion is seen in the interpolar region of the right thyroid lobe. The bones demonstrate an old healed fracture deformity of the right posterolateral 10th rib. There are also degenerative changes of the thoracic spine Abdomen pelvis: What is probably a normal appendix is demonstrated. No evidence of diverticulosis or diverticulitis. No small bowel distention or small bowel wall thickening. Contrast is seen to traverse most but not all of the small bowel. No free or loculated intraperitoneal air or fluid is evident. The stomach and duodenum are unremarkable. The liver demonstrates a subcentimeter fluid attenuation lesion in segment 4A, consistent with a small cyst or bile hamartoma. The gallbladder, bile ducts, pancreas, spleen, adrenals are unremarkable. Both kidneys demonstrate subcentimeter low-attenuation lesions which are too small to characterize. The bladder demonstrates a large posterior lateral diverticulum on the right. The prostate is mildly enlarged. The bones demonstrate degenerative lumbar spondylosis changes and multilevel disc protrusions. IMPRESSION: Borderline cardiomegaly Posterior dependent pulmonary atelectatic changes. Basilar posterior groundglass opacities, likely related to the above, but also could indicate a component of mild pulmonary edema No definite acute abnormality otherwise Prostatomegaly, mild Bladder diverticulum Left lobe liver cysts Subcentimeter low-attenuation renal lesions, too small to characterize, most likely benign simple cortical cysts. No further follow-up necessary Other findings as noted, including degenerative lumbar spondylosis, old healed right 10th rib fracture The CT scanner at [facility] is accredited by the [employer] and the scans are performed using protocols designed to limit radiation exposure to as low as reasonably achievable to attain images of sufficient resolution adequate for diagnostic evaluation.
--- NOTE | 2018-04-08 18:00 | Procedure Note ---
DATE OF PROCEDURE: 04/08/2018 SURGEON: Larry Chacko M.D. PROCEDURE: Upper endoscopy with biopsy and endoscopic ultrasound. ANESTHESIA: Per Dr. Mcclendon. INSTRUMENT: Olympus adult upper scope and EUS scope. INDICATION: Epigastric pain, abdominal pain, weight loss, family history of gastric cancer. The procedure, risks, benefits, and possible consequences, including hemorrhage, aspiration, perforation and infection, and alternative treatments, were explained to the patient/legal guardian by Dr. Larry Chacko and the patient/legal guardian understood and accepted these risks. DESCRIPTION OF PROCEDURE: After informed consent was obtained and the patient was adequately sedated, Olympus upper endoscope was advanced from mouth into the second portion of duodenum and retroflexion was performed in the stomach. The patient has evidence of diffuse gastritis. Random biopsy from antrum was obtained to rule out H. pylori infection. The patient had gastric submucosal lesion, which was seen on prior studies. This has not grown in size. The patient has also multiple gastric polyps, maybe 3 or 4 of them. One of them was biopsied to rule out fundic gland polyps. At this time, the upper endoscope was retrieved and EUS scope was introduced, started scanning at GE junction. First, we saw celiac axis. There was no obvious celiac axis adenopathy. The patient had no evidence of any pancreatitis in the body or tail. There was 1 little cyst, looks like a simple cyst in the body of the pancreas, measured roughly about 6 mm. This cyst did not seem to be communicating with the pancreatic duct. Pancreatic duct was barely seen and was not dilated. Then, the scope was advanced to the duodenal bulb and second portion of the duodenum. There is gallbladder was really contracted, so it was very difficult to assess, but this seems there might be some sludge in the gallbladder. Common bile duct was not dilated. The pancreas was carefully examined. I am not sure if the patient had a sphincterotomy before. We could not see the common bile duct and pancreatic duct coming together at the ampulla, either possibility of a division versus prior sphincterotomy. No obvious mass was seen. At this time, the scope was retrieved and the procedure was terminated. SUMMARY OF FINDINGS: 1. Gastritis, status post biopsy. 2. Gastric submucosal lesion. 3. Gastric polyp, status post biopsy. 4. Questionable gallbladder sludge with a contracted gallbladder. 5. Question of pancreatic divisum versus the prior history of a sphincterotomy. RECOMMENDATIONS: Given the patient has extensive weight loss, we recommend getting a hill CT to rule out malignancy and we will follow. Larry Chacko M.D. DR: JORGE JOB#: [id number] CC:
--- NOTE | 2018-04-09 16:43 | Cardiology Report ---
APPROVED REPORT EKG Measurement Heart [id number] Sinus bradycardia Lateral infarct, age undetermined Abnormal ECG
== END 2018-04-08 13:40 | disposition home or self-care (01) ==
LOC: GAS 07:57
DX: K29.70 Gastritis, unspecified, without bleeding (principal); K31.7 Polyp of stomach and duodenum; K31.9 Disease of stomach and duodenum, unspecified; K86.2 Cyst of pancreas; R63.4 Abnormal weight loss; Z80.0 Family history of malignant neoplasm of digestive organs; I25.10 Atherosclerotic heart disease of native coronary artery without angina pectoris; K21.9 Gastro-esophageal reflux disease without esophagitis; I10 Essential (primary) hypertension; E78.5 Hyperlipidemia, unspecified; G47.33 Obstructive sleep apnea (adult) (pediatric); Z79.82 Long term (current) use of aspirin
CPT/HCPCS: 36415; 43237; 43239; 71260; 74177; 80053; 82378; 85025; 93005; J2250; J2704; J7120; Q9963; Q9967; 94003; 94150